=== PATIENT | male | born 1970 | race Caucasian/White ===

== ENCOUNTER 2017-09-08 16:03 | Emergency (ER) | payer BC ==
[~2017-09-08] VITALS: Ht 172.7 cm; Wt 76.3 kg
[2017-09-08] MEDS ORDERED: IBUPROFEN 200 MG TABLET ONE (16:50)
[2017-09-08] MEDS ORDERED: IBUPROFEN 200 MG TABLET PO ONE (17:00)
[2017-09-08 18:04] VITALS: BP 118/72
== END 2017-09-08 18:10 | disposition home or self-care (01) ==
LOC: ED 17:30
DX: M79.671 Pain in right foot (principal); F17.200 Nicotine dependence, unspecified, uncomplicated
CPT/HCPCS: 36415; 99285

== ENCOUNTER 2017-11-03 07:55 | Emergency (ER) | payer SELFPAY ==
[~2017-11-03] VITALS: Ht 175.3 cm; Wt 77.8 kg
[2017-11-03 07:57] VITALS: BP 121/71
[2017-11-03] MEDS ORDERED: KETOROLAC 30 MG/1 ML ONE (08:28)
[2017-11-03] MEDS ORDERED: CYCLOBENZAPRINE 10 MG TABLET ONE (08:28)
[2017-11-03] MEDS ORDERED: CYCLOBENZAPRINE 10 MG TABLET PO PRN (08:30)
[2017-11-03] MEDS ORDERED: KETOROLAC 30 MG/1 ML IM ONE (08:30)
== END 2017-11-03 09:43 | disposition home or self-care (01) ==
LOC: ED 09:20
DX: S16.1XXA Strain of muscle, fascia and tendon at neck level, initial encounter (principal); M19.90 Unspecified osteoarthritis, unspecified site; G89.29 Other chronic pain; X58.XXXA Exposure to other specified factors, initial encounter; Y93.89 Activity, other specified; Y92.89 Other specified places as the place of occurrence of the external cause; Y99.8 Other external cause status
CPT/HCPCS: 72050; 96372; 99284; J1885

== ENCOUNTER 2018-04-08 07:49 | Emergency (ER) | payer SELFPAY ==
[~2018-04-08] VITALS: Ht 172.7 cm; Wt 80.0 kg
[2018-04-08 08:53] LABS: RAPID INFLUENZA A Negative (Negative); RAPID INFLUENZA B Negative (Negative)
[2018-04-08 09:32] VITALS: BP 105/59
== END 2018-04-08 09:35 | disposition home or self-care (01) ==
LOC: ED 09:20
DX: J18.1 Lobar pneumonia, unspecified organism (principal); R11.2 Nausea with vomiting, unspecified; M79.10 Myalgia, unspecified site; M19.90 Unspecified osteoarthritis, unspecified site; G89.29 Other chronic pain
CPT/HCPCS: 71046; 87081; 87400; 87880; 99284

== ENCOUNTER 2018-06-06 15:31 | Emergency (ER) | payer OTHER ==
[~2018-06-06] VITALS: Ht 172.7 cm; Wt 81.6 kg
[2018-06-06 15:49] VITALS: BP 136/78
--- NOTE | 2018-06-06 16:45 | NUR ---
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 PT GIVEN FITTED CRUTCHES WITH EDUCATION, DEMONSTRATES APPROPRIATE USE. PT GIVEN DC INSTRUCTIONS AND RX, PT EDUCATED REGARDING RX FOR NAPROXEN. PT TO DC WITH CRUTCH GAIT. 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
== END 2018-06-06 16:46 | disposition home or self-care (01) ==
LOC: ED 16:12
DX: S83.91XA Sprain of unspecified site of right knee, initial encounter (principal); F17.200 Nicotine dependence, unspecified, uncomplicated; M19.90 Unspecified osteoarthritis, unspecified site; W01.0XXA Fall on same level from slipping, tripping and stumbling without subsequent striking against object, initial encounter; Y93.89 Activity, other specified; Y92.89 Other specified places as the place of occurrence of the external cause; Y99.8 Other external cause status
CPT/HCPCS: 29505; 99283

== ENCOUNTER 2019-09-02 09:35 | Emergency (ER) | payer MEDICAID, OTHER ==
[~2019-09-02] VITALS: Ht 172.7 cm; Wt 82.0 kg
[~2019-09-02 09:35] MED LIST: CALC200T3 PO; COLC0.6C3 PO; IBUP-1222 PO; MULT-658 PO
[2019-09-02] MEDS ORDERED: SODIUM CHLORIDE FLUSH 10ML SYR IVF ONE (10:00)
--- NOTE | 2019-09-02 10:07 | NUR ---
PT CAME IN CO OF LLQ AND RLQ ABD PAIN. PT DENIES PAINFUL URINATION OR DISCHARGE FROM PENIES. PT SAYS HES BEEN HAVING REGULAR BM. UA SENT. LABS DRAWN. PT RESTING IN [facility] WATCHING TV.
[2019-09-02 10:17] LABS: MICROSCOPIC NOT IND
[2019-09-02 10:28] LABS: BASOPHILS # (AUTO) 0.05 x10^3/uL (0-0.1); BASOPHILS % (AUTO) 1 % (0-1); EOSINOPHILS # (AUTO) 0.24 x10^3/uL (0-0.4); EOSINOPHILS % (AUTO) 3 % (1-7); LYMPHOCYTES # (AUTO) 2.48 x10^3/uL (1-3.4); LYMPHOCYTES % (AUTO) 30 % (22-44); MD NO; MEAN CORPUSCULAR HGB CONC 34.4 g/dL (33.2-36.2); MEAN CORPUSCULAR VOLUME 98.8 fL (81-97); MEAN PLATELET VOLUME 8.7 fL (7.4-10.4); MONOCYTES # (AUTO) 0.65 x10^3/uL (0.2-0.8); MONOCYTES % (AUTO) 8 % (2-9); NEUTROPHILS # (AUTO) 4.78 x10^3/uL (1.8-6.8); NEUTROPHILS % (AUTO) 58 % (42-75); PLATELET COUNT 208 x10^3/uL (130-400); RED BLOOD COUNT 4.79 x10^6/uL (4.38-5.82); RED CELL DISTRIBUTION WIDTH 12.8 % (9.4-14.8)
[2019-09-02 10:39] LABS: ALBUMIN 4.1 g/dL (3.4-5.0); ANION GAP 7 mmol/L (5-15); CALCIUM 9.4 mg/dL (8.5-10.1); CHLORIDE 107 mmol/L (98-107)
[2019-09-02 10:43] LABS: ALANINE AMINOTRANSFERASE 128 U/L (12-78); ALKALINE PHOSPHATASE 98 U/L (45-117); BILIRUBIN,TOTAL 0.7 mg/dL (0.2-1.0); CREATININE 0.93 mg/dL (0.7-1.3); TOTAL PROTEIN 9.2 g/dL (6.4-8.2)
[2019-09-02] MEDS ORDERED: OMNIPAQUE 350 MG/ML, 100ML BOTTLE ONE ×2 (10:45→11:22)
--- NOTE | 2019-09-02 11:07 | NUR ---
PT IN CT AT THIS TIME
[2019-09-02 11:12] VITALS: BP 125/83
--- NOTE | 2019-09-02 11:12 | NUR ---
PT BACK FROM CT. WATCHING TV. EUFEMIA. HALI
== END 2019-09-02 12:03 | disposition home or self-care (01) ==
LOC: ED 10:54
DX: R10.31 Right lower quadrant pain (principal); R10.32 Left lower quadrant pain; R59.0 Localized enlarged lymph nodes; Z86.19 Personal history of other infectious and parasitic diseases
CPT/HCPCS: 36415; 74177; 80053; 81003; 83690; 85025; 99285; Q9967

== ENCOUNTER 2019-09-03 20:39 | Emergency (ER) | payer MEDICAID ==
[~2019-09-03] VITALS: Ht 172.7 cm; Wt 81.8 kg
[2019-09-03] MEDS ORDERED: MORPHINE SULFATE 4 MG/ML, 1ML ONE (21:12)
[2019-09-03] MEDS ORDERED: ONDANSETRON 2MG/ML, 2ML ONE (21:12)
[2019-09-03 21:30] LABS: BASOPHILS # (AUTO) 0.03 x10^3/uL (0-0.1); BASOPHILS % (AUTO) 0 % (0-1); EOSINOPHILS # (AUTO) 0.31 x10^3/uL (0-0.4); EOSINOPHILS % (AUTO) 5 % (1-7); LYMPHOCYTES # (AUTO) 2.99 x10^3/uL (1-3.4); LYMPHOCYTES % (AUTO) 44 % (22-44); MD NO; MEAN CORPUSCULAR HEMOGLOBIN 34.1 pg (27.5-34.5); MEAN CORPUSCULAR HGB CONC 34.4 g/dL (33.2-36.2); MEAN CORPUSCULAR VOLUME 98.8 fL (81-97); MEAN PLATELET VOLUME 8.6 fL (7.4-10.4); MONOCYTES # (AUTO) 0.54 x10^3/uL (0.2-0.8); MONOCYTES % (AUTO) 8 % (2-9); NEUTROPHILS # (AUTO) 2.88 x10^3/uL (1.8-6.8); NEUTROPHILS % (AUTO) 43 % (42-75); PLATELET COUNT 188 x10^3/uL (130-400); RED BLOOD COUNT 4.46 x10^6/uL (4.38-5.82)
--- NOTE | 2019-09-03 21:32 | NUR ---
Patient presents to ER c/o abd pain. Patient was seen for the same yesterday but today the pain has moved from lower quadrants into the upper quadrants. Patient reports bloating and abd being hard. Patient states the pain is a 10/10. Patient is in NAD. Respirations even and unlabored.
[2019-09-03 21:43] LABS: ALANINE AMINOTRANSFERASE 112 U/L (12-78); ALBUMIN 3.6 g/dL (3.4-5.0); ANION GAP 7 mmol/L (5-15); CALCIUM 8.5 mg/dL (8.5-10.1); CHLORIDE 109 mmol/L (98-107); CREATININE 0.95 mg/dL (0.7-1.3)
[2019-09-03 21:43] LABS: MICROSCOPIC NOT IND
[2019-09-03 21:45] LABS: ALKALINE PHOSPHATASE 116 U/L (45-117); BILIRUBIN,TOTAL 0.3 mg/dL (0.2-1.0); TOTAL PROTEIN 8.3 g/dL (6.4-8.2)
[2019-09-03] MEDS ORDERED: ONDANSETRON 2MG/ML, 2ML IVPush ONE (22:00)
[2019-09-03] MEDS ORDERED: MORPHINE SULFATE 4 MG/ML, 1ML IVPush ONE (22:00)
[2019-09-03 23:05] VITALS: BP 121/76
== END 2019-09-03 23:19 | disposition home or self-care (01) ==
LOC: ED 22:30
DX: R10.84 Generalized abdominal pain (principal); R59.0 Localized enlarged lymph nodes; F17.290 Nicotine dependence, other tobacco product, uncomplicated
CPT/HCPCS: 36415; 80053; 81003; 83605; 83690; 85025; 96374; 96375; 99284; 99406; J2270; J2405

== ENCOUNTER 2020-10-20 08:33 | Emergency (ER) | payer MEDICAID ==
[~2020-10-20] VITALS: Ht 175.3 cm; Wt 83.1 kg
--- NOTE | 2020-10-20 08:57 | NUR ---
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
--- NOTE | 2020-10-20 09:00 | NUR ---
"EVER SINCE I GOT MY SECOND COVID SHOT I'VE BEEN HAVING FEVERS AND SOB." APPEARS WELL, CLEAR LUNGS, VSS/AFEBRILE AT THIS TIME (NO RECENT NSAIDS) ERP TO BEDSIDE FOR EXAM
--- NOTE | 2020-10-20 09:30 | NUR ---
LAB AT BEDSIDE
--- NOTE | 2020-10-20 09:46 | NUR ---
CXR AT BEDSIDE
[2020-10-20 09:58] LABS: ALANINE AMINOTRANSFERASE 26 U/L (12-78); ALBUMIN 3.6 g/dL (3.4-5.0); ANION GAP 4 mmol/L (5-15); CALCIUM 9.1 mg/dL (8.5-10.1); CHLORIDE 107 mmol/L (98-107); CREATININE 0.77 mg/dL (0.7-1.3)
[2020-10-20 10:02] LABS: ALKALINE PHOSPHATASE 86 U/L (45-117); BILIRUBIN,TOTAL 0.5 mg/dL (0.2-1.0); TOTAL PROTEIN 7.3 g/dL (6.4-8.2); TROPONIN I < 0.015 ng/mL (0.000-0.045)
--- NOTE | 2020-10-20 10:03 | NUR ---
COVID SWAB WALKED TO LAB
[2020-10-20 10:22] LABS: BASOPHILS % (AUTO) 1 % (0-1); EOSINOPHILS % (AUTO) 4 % (1-7); LYMPHOCYTES % (AUTO) 20 % (22-44); MEAN CORPUSCULAR HEMOGLOBIN 34.2 pg (27.5-34.5); MEAN CORPUSCULAR HGB CONC 35.8 g/dL (33.2-36.2); MEAN PLATELET VOLUME 8.9 fL (7.4-10.4); MONOCYTES % (AUTO) 6 % (2-9); NEUTROPHILS % (AUTO) 69 % (42-75); PLATELET COUNT 180 x10^3/uL (130-400); RED BLOOD COUNT 4.59 x10^6/uL (4.38-5.82); RED CELL DISTRIBUTION WIDTH 12.8 % (9.4-14.8)
[2020-10-20 10:31] VITALS: BP 126/75
--- NOTE | 2020-10-20 10:32 | NUR ---
NO CHANGE IN EXAM. PO CHALLENGE UNREMARKABLE PLACED UP FOR RECHECK
== END 2020-10-20 10:51 | disposition home or self-care (01) ==
LOC: ED 09:33
DX: R06.00 Dyspnea, unspecified (principal); Z20.822 Contact with and (suspected) exposure to COVID-19; R50.9 Fever, unspecified; R42 Dizziness and giddiness; R94.31 Abnormal electrocardiogram [ECG] [EKG]; Z90.89 Acquired absence of other organs
CPT/HCPCS: 36415; 71045; 80053; 83880; 84484; 85025; 85379; 93005; 99285; U0003; U0005